=== PATIENT | female | born 1990 | race African-American/Black ===

== ENCOUNTER 2022-10-28 13:52 | Emergency (ER) | payer MEDICAID ==
[~2022-10-28] VITALS: Ht 160 cm; Wt 72.7 kg
[~2022-10-28 13:52] MED LIST: ONDA4TAB11 PO; PYRI50CA MT
[2022-10-28 14:03] VITALS: O2SAT 98
[2022-10-28] MEDS ORDERED: ACETAMINOPHEN 325MG TABLET PO STA (14:36)
[2022-10-28] MEDS ORDERED: KETOROLAC 30MG/ML VIAL IM STA (14:36)
[2022-10-28 15:36] LABS: BASOPHILS % 0.7 % (0.0-2.0); EOSINOPHILS % 4.2 % (0.0-5.0); MEAN CORPUSCULAR HEMOGLOBIN 30.8 pg (28.0-32.0); MEAN CORPUSCULAR HGB CONC 33.4 g/dL (31.0-37.0); MEAN CORPUSCULAR VOLUME 92.2 fL (81.0-99.0); MEAN PLATELET VOLUME 7.4 fl (7.4-10.4); MONOCYTES % 7.7 % (2.0-8.0); NEUTROPHILS % 64.4 % (40.0-76.0); PLATELET 381 x1000/uL (130-400); RED BLOOD CELL COUNT 3.91 mill/uL (4.2-5.4); RED CELL DISTRIBUTION WIDTH 14.5 % (11.6-14.6); WHITE BLOOD COUNT 8.4 x1000/uL (4.5-11.0)
[2022-10-28 15:42] LABS: CHLORIDE 104 mEq/L (98-107); INDEX HEMOLYSI 1 (1-3); INDEX ICTERIC 1 (1-4); INDEX LIPEMIC 1 (1-3); POTASSIUM 3.5 mEq/L (3.5-5.1); SODIUM 139 mEq/L (136-145)
[2022-10-28 15:50] LABS: ALANINE AMINOTRANSFERASE 54 IU/L (13-61); ASPARTATE AMINOTRANSFERASE 23 IU/L (15-37); BILIRUBIN TOTAL 0.5 mg/dL (0.1-1.0); CALCIUM 8.9 mg/dL (8.5-10.1); CARBON DIOXIDE 28 mEq/L (21-32); CREATININE 0.7 mg/dL (0.6-1.3); GLUCOSE 82 mg/dL (70-105); PROTEIN TOTAL 7.6 g/dL (6.0-8.3); UREA NITROGEN BLOOD 12 mg/dL (7-21)
[2022-10-28 18:06] VITALS: BP 129/86; PULSE 60; RESP 18; TEMP 98.4
[2022-10-28] MEDS ORDERED: DOXY100C5 MT (18:37)
[2022-10-28] MEDS ORDERED: OXYC-100 MT (18:38)
[2022-10-28] MEDS ORDERED: ACET-2708 MT (18:41)
[2022-10-28] MEDS ORDERED: IBUP-2029 MT (18:41)
== END 2022-10-28 19:33 | disposition home or self-care (01) ==
LOC: ER 13:52
DX: R10.30 Lower abdominal pain, unspecified (principal); J45.909 Unspecified asthma, uncomplicated; Z88.6 Allergy status to analgesic agent; Z98.890 Other specified postprocedural states
CPT/HCPCS: 99285; 76856; 80053; 83690; 85025; 36415; 96372; J1885

== ENCOUNTER 2023-03-05 05:02 | Emergency (ER) | payer MEDICAID, OTHER ==
[~2023-03-05] VITALS: Ht 160 cm; Wt 68.0 kg
[~2023-03-05 05:02] MED LIST changes: +ACET-2708 MT; +DOXY100C5 MT; +IBUP-2029 MT
[2023-03-05 06:17] VITALS: O2SAT 98
[2023-03-05] MEDS ORDERED: DEXAMETHASONE 10 MG/ML VIAL IV ONE (09:15)
[2023-03-05 09:30] VITALS: BP 127/76; PULSE 97; RESP 16; TEMP 98.5
== END 2023-03-05 09:32 | disposition home or self-care (01) ==
LOC: ER 05:02
DX: J02.9 Acute pharyngitis, unspecified (principal); J45.909 Unspecified asthma, uncomplicated; Z20.822 Contact with and (suspected) exposure to COVID-19; Z88.6 Allergy status to analgesic agent; Z98.890 Other specified postprocedural states
CPT/HCPCS: 81025; 87430; 87070; 96374; 99283; 87426; J1100; Z7610